=== PATIENT | female | born 1960 | race Caucasian/White ===

== ENCOUNTER 2024-07-15 13:35 | Day surgery (SDC) | payer MEDICARE ==
[2024-07-15] MEDS ORDERED: BUPIVACAINE 0.5% VIAL IJ ONE (13:36)
[2024-07-15] MEDS ORDERED: Depo-Medrol 40 MG/ML IM ONE (13:36)
[2024-07-15] MEDS ORDERED: DIPRIVAN 200 MG/20 ML IV ONE (14:51)
--- NOTE | 2024-07-15 16:50 | XRAY ---
Indication: Right hip including greater trochanter bursa injection. Intraoperative fluoroscopy provided for 14 seconds. 2 digital spot image submitted for interpretation demonstrates needle tip projecting lateral to right femur neck. Second needle tip lateral to right greater trochanter. Small amount of contrast injected for needle tip placement. Correlate with intraoperative findings/report.
--- NOTE | 2024-07-15 17:05 | XRAY ---
14 seconds of fluoroscopy was used in surgery for a right intra-articular hip and greater trochanteric bursa injection.
== END 2024-07-15 15:22 ==
LOC: SDC-PAIN 13:35
PROVIDERS: ATTEND Psychiatry & Neurology Pain Medicine
DX: M16.11 Unilateral primary osteoarthritis, right hip (principal); M70.61 Trochanteric bursitis, right hip
CPT/HCPCS: 20610; 73502; 77002; J2704; Q9966

== ENCOUNTER 2024-12-02 14:30 | Day surgery (SDC) | payer MEDICARE ==
[2024-12-02] MEDS ORDERED: Depo-Medrol 40 MG/ML IM ONE (14:31)
[2024-12-02] MEDS ORDERED: LIDOCAINE HCL 1% AMPUL 5 ML IJ ONE (14:31)
[2024-12-02] MEDS ORDERED: BUPIVACAINE 0.5% VIAL IJ ONE (14:31)
[2024-12-02] MEDS ORDERED: Lactated Ringers IV ONE (14:31)
[2024-12-02] MEDS ORDERED: propofoL IV ONE (16:19)
--- NOTE | 2024-12-02 16:44 | XRAY ---
Indication: Bilateral greater trochanter bursa injection. Intraoperative fluoroscopy provided for 18 seconds. 2 digital spot images submitted for interpretation demonstrates needle tips projecting lateral to left and right greater trochanters. Small amount of contrast injected for both needle tip placement. Correlate with intraoperative findings/report.
--- NOTE | 2024-12-02 17:20 | XRAY ---
18 seconds of fluoroscopy was used in surgery for a bilateral greater trochanteric bursa injection.
== END 2024-12-02 16:50 | disposition home or self-care (01) ==
LOC: SDC-PAIN 14:30
PROVIDERS: ATTEND Psychiatry & Neurology Pain Medicine
DX: M70.62 Trochanteric bursitis, left hip (principal); M70.61 Trochanteric bursitis, right hip
CPT/HCPCS: 20610; 73521; 77002; J2704; Q9966

== ENCOUNTER 2025-04-21 11:53 | Day surgery (SDC) | payer MEDICARE, SELFPAY ==
[2025-04-21] MEDS ORDERED: BUPIVACAINE 0.5% VIAL IJ ONE (11:54)
[2025-04-21] MEDS ORDERED: methylPREDNISolone acetate IM ONE (11:54)
[2025-04-21] MEDS ORDERED: propofoL IV ONE (12:55)
[2025-04-21] MEDS ORDERED: Lactated Ringers 1,000 ML IV ONE (14:48)
--- NOTE | 2025-04-21 19:31 | XRAY ---
Indication: Right hip and greater trochanter bursa injection. Intraoperative fluoroscopy provided for 14 seconds. 3 digital spot image submitted for interpretation demonstrates needle tips projecting lateral to right femur neck and greater trochanter. Small amount of contrast injected for both needle tip placement. Correlate with intraoperative findings/report.
--- NOTE | 2025-04-21 19:37 | XRAY ---
14 seconds of fluoroscopy was used in surgery for a right intra-articular hip and greater trochanteric bursa injection.
== END 2025-04-21 13:27 | disposition home or self-care (01) ==
LOC: SDC-PAIN 11:53
PROVIDERS: ATTEND Psychiatry & Neurology Pain Medicine
DX: M16.51 Unilateral post-traumatic osteoarthritis, right hip (principal); M70.61 Trochanteric bursitis, right hip